=== PATIENT | female | born 1945 | race Caucasian/White ===

== ENCOUNTER → 2017-01-08 | Outpatient (CLI) | payer MEDICARE ==
[~2017-01-08] MED LIST: ELIQUIS5 MG PO; FLONASE 0.05% D16 GM NS; GLUCOPHAGE-DPS500 MG PO; PRAVACHOL40 MG PO; SYNTHROID75 MCG PO; TYLENOL DPS325 MG PO; ULTRAM DPS50 MG PO; VITAMIN D31000 UNIT PO; ZESTRIL DPS40 MG PO
== END | disposition home or self-care (01) ==
LOC: PTH.S 11:13
DX: R09.81 Nasal congestion (principal); R05 Cough

== ENCOUNTER → 2017-01-13 | Outpatient (CLI) | payer MEDICARE | END | disposition home or self-care (01) | LOC: RESC 01-05 16:10 | DX: R05 Cough (principal); R09.81 Nasal congestion; J32.4 Chronic pansinusitis ==

== ENCOUNTER 2017-02-27 10:51 | Emergency (ER) | payer MEDICARE ==
--- NOTE | 2017-03-05 21:34 | ER ---
ADMIT: 02/27/2017 RM/LOC: ER [facility] MR#: [id number] [address] [address] KARLIE VERDUGO [address] [place] [address] Emergency Room Report SEX: F AGE: 71 : 1945 DATE: 02/27/2017 CHIEF COMPLAINT: Left knee pain. HPI: The patient states 3-4 days ago she began having some anterior left knee pain. She denies any fall, twist, or direct blow or any other mechanism to explain her pain. States she has been using Tylenol and Biofreeze topically without much improvement. States she cannot use ibuprofen as it upsets her stomach. She describes the pain as an ache over the anterior knee with some extension into the medial side. Describes it 03/16. COURSE IN ER: The patient was seen and examined. She is in no acute distress. She is alert, afebrile, and nontoxic. Significant for tenderness over the anterior aspect of her knee. No obvious effusion or ecchymosis. She was able to bear weight prior to arrival today. Typically walks independently with front-wheeled walker. I did get x-ray studies of the left knee showing no acute fracture or dislocation. She does have some degenerative changes in the medial compartment, significant for early osteoarthritis. IMPRESSION: Left knee pain, concern for patellar bursitis vs osteoarthritis. DISPOSITION: Daughter at the bedside, requests something for pain as she has been unable to sleep secondary to the pain, Tylenol is not improving her pain. I will give her a script for [place] 5/325, #10 to follow up with Dr. Gastelum if she is not improving. I told her to use caution while using the pain medications as it can cause dizziness, increased risk for falls. She should not drive while using narcotics. Also cautioned not to use Tylenol while using the [place] as it does contain Tylenol. Certainly continue to apply ice or heat as needed for comfort, Biofreeze as needed, and activity as tolerated. Continue all her home medications. Follow up with Dr. Gastelum as needed. Questions were sought and answered to best of my ability and patient's satisfaction. Discharged in stable condition. ANYA Barraza / Thee Matthew MD / severol JOB #: [id number] CC: Thee Matthew MD, Attending Physician Jason Gastelum MD, Family Physician
[2017-04-02] MEDS ORDERED: ELIQUIS5 MG PO (10:35)
[2017-04-02] MEDS ORDERED: ZESTRIL DPS40 MG PO (10:36)
[2017-04-02] MEDS ORDERED: SYNTHROID75 MCG PO (10:36)
[2017-04-02] MEDS ORDERED: PRAVACHOL40 MG PO (10:36)
[2017-04-02] MEDS ORDERED: VITAMIN D31000 UNIT PO (10:36)
[2017-04-02] MEDS ORDERED: TYLENOL DPS325 MG PO (10:37)
[2017-04-02] MEDS ORDERED: FLONASE 0.05% D16 GM NS (10:37)
[2017-04-02] MEDS ORDERED: ULTRAM DPS50 MG PO (10:37)
[2017-04-02] MEDS ORDERED: GLUCOPHAGE-DPS500 MG PO (10:37)
== END 2017-02-27 12:30 | disposition home or self-care (01) ==
LOC: ER 10:51
DX: M25.562 Pain in left knee (principal); I10 Essential (primary) hypertension; E11.9 Type 2 diabetes mellitus without complications; Z87.891 Personal history of nicotine dependence; Z79.899 Other long term (current) drug therapy

== ENCOUNTER 2017-03-22 12:47 | Inpatient (IN) | payer MEDICARE ==
[~2017-03-22] VITALS: Ht 162.6 cm; Wt 99.8 kg
--- NOTE | ~2017-03-22 | ECH ---
Transthoracic Echocardiography Report (TTE) Demographics Patient Name KARLIE VERDUGO Date of Study 03/23/2017 Patient Number [id number] Visit Number [id number] Date of 1945 Room Number 424 Accession Number [id number] Gender Female Age 71 year(s) Referring Nirav Moreira MD Chief Data Officer Debi Denis Physician RDCS Physician Interpreting Robel DOWNS Industry Consultant Physician Rob Supervising Ordering Physician Nirav Moreira MD, MD/MLP Nurse Stress Paper Bag Press Operator Conclusions Contractility Score Summary Normal Left Ventricular contractility was noted. Summary Technically adequate exam. The estimated left ventricular ejection fraction is 60%. Diastolic assessment reveals Grade I diastolic dysfunction. Bubble study was done, there is no evidence for a PFO or ASD. No significant valvular abnormalities. Recommendation The patient will be given the results of this study by the physician who ordered the exam. Procedure Type of Study TTE procedure:Echo Complete SF. Procedure Date Date: 03/23/2017 Start: 11:01 Technical Quality: Adequate visualization Indications:CVA, Atrial fibrillation, Hypertension and Diabetes. Appropriate Use Criteria: 9 Height: 64 inches Weight: 222 pounds BSA: 2.04 m Rhythm: NSR HR: 76 bpm BP: 206/92 mmHg M-Mode/2D Measurements LV Diastolic Dimension: 4.97 cm LV Systolic Dimension: 3.07 cm LV Septum Diastolic: 0.81 cm LV PW Diastolic: 0.81 cm AO Root Dimension: 2.75 cm Cardiac Output: 4.73 l/min LA Dimension: 3.55 cm Cardiac Index: 2.32 l/min*m RV Diastolic Dimension: 3.4 cm LA volume index: 22 ml/m LVOT: 1.92 cm LVOT VTI: 21.52 cm RV Base: 2.8 cm LV Stroke volume: 62.28 ml RV Mid: 1.9 cm LV Stroke volume index: 30.53 ml/m TAPSE: 1.9 cm TDI-S': 16 cm/s Doppler Measurements AV Peak Velocity: 1.4 m/s MV Peak E-Wave: 0.81 m/s AV Peak Gradient: 7.84 mmHg MV Peak A-Wave: 1.04 m/s AV Mean Gradient: 4.12 mmHg MV E/A Ratio: 0.77 LVOT Peak Velocity: 0.99 m/s MV P1/2t: 60.1 msec AV Area (Continuity):2.12 cm MV Deceleration Time: 182.3 msec MV Area (PHT): 3.66 cm PV Peak Velocity: 0.81 m/s E' Septal Velocity: 0.08 m/s PV Peak Gradient: 2.6 mmHg E' Lateral Velocity: 0.05 m/s A' Septal Velocity: 0.1 m/s A' Lateral Velocity: 0.08 m/s RA Area: 14.51 cm Findings Left Ventricle Normal left ventricle size and function. Diastolic assessment reveals Grade I diastolic dysfunction. Right Ventricle Normal right ventricle structure and function. Left Atrium Normal left atrial size. Informed consent was obtained, bubble study was done, there is no evidence for a PFO or ASD. Right Atrium Normal right atrial size. Mitral Valve Normal mitral valve structure and function. Mild mitral regurgitation by color Doppler. Aortic Valve Normal aortic valve structure and function. Tricuspid Valve Normal tricuspid valve structure and function. Trivial tricuspid regurgitation by color Doppler. Insufficient jet to calculate pulmonary pressures. Pulmonic Valve Normal pulmonic valve structure and function. Pericardial Effusion No evidence of pericardial effusion. Miscellaneous Visualized portions of the aortic root and ascending aorta appear normal in size. Pleural Effusion No evidence of pleural effusion. Contractility Score LV regional wall motion:(0-Non visualized 1-Normal 2-Hypokinesis 3-Akinesis 4-Dyskinesis 5-Aneurysm) Signature
--- NOTE | 2017-03-22 22:09 | NUR ---
Called Dr Zendejas to inquire if MRI could be done first thing in AM or if it had to be done tonight. She stated that it could be done in AM. I called CT to pass on that message and they acknowledged the message.
--- NOTE | 2017-03-23 21:30 | NUR ---
Called Dr Gastelum with results from CTA. New orders received for morning lab draws.
--- NOTE | 2017-03-24 12:05 | HP ---
ADMIT: 03/22/2017 RM/LOC: 424 [facility] MR#: [id number] [facility] [address] [place] [phone] KARLIE VERDUGO [address] [place] [address] History and Physical SEX: F AGE: 71 : 1945 DATE OF SERVICE: CHIEF COMPLAINT: Confusion. HISTORY OF PRESENT ILLNESS: The patient is a 71-year-old female, known to me from clinic, who according to her daughter just kind of was not acting right this morning. Was not acting right on the phone, some confusion. This persisted. Went to the ER. The patient currently reports she has had a headache. Similar to when she had a stroke a few years ago. Otherwise, she overall just does not feel like herself, feels groggy. Reports she has not taken any pain medication today. Was planning on getting a knee scope tomorrow. Otherwise, had been in her usual state of health. Prior to this, struggling with some knee. Suspect a meniscal tear pain recently. She is off her Xarelto for the last 4 days under direction for her upcoming procedure she states. Otherwise, no recent palpitations, fevers, chills, nausea, vomiting, or shortness of breath. PAST MEDICAL HISTORY: 1. Depression. 2. GERD. 3. History of stroke. 4. Hypertension. 5. Hypothyroidism. 6. Obstructive sleep apnea. 7. Chronic atrial fibrillation, on chronic anticoagulation. 8. Type 2 diabetes. 9. Hypercholesterolemia. MEDICATIONS: She is on: 1. DuoNeb. 2. Eliquis 5 mg b.i.d. 3. Lasix 40 mg. 4. [place] p.r.n. 5. Synthroid. 6. Lisinopril. 7. Metformin. 8. Metoprolol. 9. Pravastatin. PAST SURGICAL HISTORY: Hysterectomy, appendectomy, and oophorectomy. FAMILY HISTORY: Mother had diabetes, heart disease, and uterine cancer. Father had depression. Sister with heart disease. SOCIAL HISTORY: Former history of smoking. Quit in 1989. REVIEW OF SYSTEMS: As per HPI. Otherwise, completely reviewed and negative. PHYSICAL EXAMINATION: VITAL SIGNS: Temperature 98.5, pulse 84, respiratory ADMIT: 03/22/2017 RM/LOC: 424 [facility] MR#: [id number] [address] [address] KARLIE VERDUGO [address] [place] [address] History and Physical SEX: F AGE: 71 : 1945 rate 16, blood pressure 187/85, and O2 saturation 93% on room air. GENERAL: She is alert and oriented x3, but very slow with her responses. Kind of wide-eyed. HEENT: Normocephalic and atraumatic. Pupils are equal bilaterally. No icterus. Dry mucous membranes. She has a left-sided facial droop. NECK: No lymphadenopathy. Trachea is midline. Soft and supple. LUNGS: Clear to auscultation bilaterally. No wheezes, rales, or rhonchi. HEART: Regular rate and rhythm. No murmurs, rubs, or gallops. ABDOMEN: Soft, nontender, nondistended. Bowel sounds present. EXTREMITIES: No cyanosis, clubbing, or edema. 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 She has had a left facial droop and some coordination issues in her left lower extremity as well as in her left upper extremity. Does not move it as well as her right side. SKIN: No rashes noted. NEUROLOGIC: Cranial nerves noted for facial droop. Otherwise intact. Left facial droop. LABORATORY AND X-RAY DATA: Chest x-ray looks okay. Head CT scan was negative for anything acute, stable. Creatinine 0.6. White count 12.6 and platelets 236. Potassium 4.1. UA is negative. Troponins negative. ASSESSMENT/PLAN: 1. Acute stroke. 2. Diabetes type 2. 3. Hypertension. 4. Hyperlipidemia. 5. Obstructive sleep apnea. PLAN: At this point in time, it seems like she has an acute stroke clearly on exam. We will get an MRI to further evaluate. Restart her Eliquis. Given her history of atrial fibrillation. We will consult therapy services. The patient is agreeable with plan. Jason Gastelum MD/ rosy JOB #: [id number] CC: Jason Gastelum, Attending Physician Jason Gastelum, Family Physician
--- NOTE | 2017-03-30 15:50 | DS ---
ADMIT: 03/22/2017 RM/LOC: 424 [facility] MR#: [id number] [address] [address] KARLIE VERDUGO [address] [place] [address] Discharge Summary SEX: F AGE: 71 : 1945 ADMISSION DATE: 03/22/2017 DISCHARGE DATE: 03/25/2017 ATTENDING AT TIME OF DISCHARGE: Jason Gastelum MD CONSULTATIONS: None. PROCEDURES: None. FINAL DIAGNOSES: 1. Acute stroke. 2. Diabetes, type 2. 3. Hypertension. 4. Obstructive sleep apnea. 5. Knee pain. 6. A fib (atrial fibrillation). REASON FOR ADMISSION: The patient is a 71-year-old female, not acting like herself. Had a left facial droop and some left weakness. Presented to the emergency room. Admitted for further stabilization with concern for acute stroke. HOSPITAL COURSE: The patient had been off her anticoagulation due to planned knee scoping. She was restarted on her anticoagulation. Imaging was performed. Initially was not overall diagnostic. Had repeat MRI after she had persistence and actually re-worsening of symptoms. Ultimately consistent with acute stroke. Given her symptoms, she did have some improvement while here. Plan is to go up to the IRU with continued therapy services. Plan anticoagulation to be continued indefinitely. DISCHARGE INSTRUCTIONS: She will go to IRU with therapy. For discharge medications, please see discharge MAR, which I reviewed. She will see me back in clinic in followup to be arranged upon discharge from IRU. Jason Gastelum MD/ obdulio JOB #: [id number] CC: Jason Gastelum MD, Attending Physician Jason Gastelum MD, Family Physician
[2017-04-02] MEDS ORDERED: ELIQUIS5 MG PO (10:35)
[2017-04-02] MEDS ORDERED: SYNTHROID75 MCG PO (10:36)
[2017-04-02] MEDS ORDERED: PRAVACHOL40 MG PO (10:36)
[2017-04-02] MEDS ORDERED: VITAMIN D31000 UNIT PO (10:36)
[2017-04-02] MEDS ORDERED: ZESTRIL DPS40 MG PO (10:36)
[2017-04-02] MEDS ORDERED: FLONASE 0.05% D16 GM NS (10:37)
[2017-04-02] MEDS ORDERED: TYLENOL DPS325 MG PO (10:37)
[2017-04-02] MEDS ORDERED: ULTRAM DPS50 MG PO (10:37)
[2017-04-02] MEDS ORDERED: GLUCOPHAGE-DPS500 MG PO (10:37)
--- NOTE | 2017-04-21 18:45 | ER ---
ADMIT: 03/22/2017 RM/LOC: 424 [facility] MR#: [id number] [address] [address] KARLIE VERDUGO [address] [place] [address] Emergency Room Report SEX: F AGE: 71 : 1945 DATE: 03/22/2017 ADDENDUM: The patient comes to the ER for weakness and also a headache that started at 4:00 a.m. She has had an inability to talk and seems confused. She has fallen several times. She does use a cane. On physical exam, she is alert and oriented, but she is very slow to answer all my questions. Nurse did a stroke scale on her which was negative. According to the family, some of her symptoms seemed to have resolved since she has arrived to the ER. DIAGNOSES: 1. Transient ischemic attack. 2. Weakness. DISCUSSION: I did consult with Dr. Gastelum concerning treatment of this patient. CT scan of her head was negative. IV of normal saline was started. She was given morphine for her headache which did help with her symptoms. The patient will be admitted by Dr. Gastelum. Please refer to his dictation for further treatment. ANYA Dallas / Reza Hoang MD / modl JOB #: [id number] CC: Jason Gastelum MD, Attending Physician Jason Gastelum MD, Family Physician
== END 2017-03-25 10:05 | disposition short-term general hospital (02) | DRG 65 ==
LOC: ER 12:47 → 4PCU 16:35
PROVIDERS: ADMIT Internal Medicine
DX: I63.9 Cerebral infarction, unspecified (principal); G81.94 Hemiplegia, unspecified affecting left nondominant side; I48.2 Chronic atrial fibrillation; E11.9 Type 2 diabetes mellitus without complications; R29.810 Facial weakness; S83.209A Unspecified tear of unspecified meniscus, current injury, unspecified knee, initial encounter; X58.XXXA Exposure to other specified factors, initial encounter; F32.9 Major depressive disorder, single episode, unspecified; K21.9 Gastro-esophageal reflux disease without esophagitis; E78.00 Pure hypercholesterolemia, unspecified; I10 Essential (primary) hypertension; E03.9 Hypothyroidism, unspecified; G47.33 Obstructive sleep apnea (adult) (pediatric); Z86.73 Personal history of transient ischemic attack (TIA), and cerebral infarction without residual deficits; Z79.01 Long term (current) use of anticoagulants; Z79.84 Long term (current) use of oral hypoglycemic drugs; Z87.891 Personal history of nicotine dependence

== ENCOUNTER 2017-03-25 08:57 | Inpatient (IN) | payer MEDICARE ==
[~2017-03-25] VITALS: Ht 162.6 cm; Wt 100.5 kg
--- NOTE | 2017-03-27 18:51 | NUR ---
DAY SHIFT SUMMARY: REGULAR DIET, BUT IS NOT TO USE STRAWS; GROOMING IS SUPERVISED AND ITEMS SETUP FOR PT; MIN ASSIST OF 1 FOR DRESSING, TOILETING AND AMBULATION W/ GAIT BELT, WALKER AND 1 ASSIST; BOWEL MED HELD TODAY STOOLS WERE LOOSE 5/20; TRANSFERS BED TO CHAIR AND ON/OFF TOILET SUPERVISED W/ SBA OF 1.
[2017-04-02] MEDS ORDERED: ELIQUIS5 MG PO (10:35)
[2017-04-02] MEDS ORDERED: SYNTHROID75 MCG PO (10:36)
[2017-04-02] MEDS ORDERED: VITAMIN D31000 UNIT PO (10:36)
[2017-04-02] MEDS ORDERED: PRAVACHOL40 MG PO (10:36)
[2017-04-02] MEDS ORDERED: ZESTRIL DPS40 MG PO (10:36)
[2017-04-02] MEDS ORDERED: ULTRAM DPS50 MG PO (10:37)
[2017-04-02] MEDS ORDERED: TYLENOL DPS325 MG PO (10:37)
[2017-04-02] MEDS ORDERED: GLUCOPHAGE-DPS500 MG PO (10:37)
[2017-04-02] MEDS ORDERED: FLONASE 0.05% D16 GM NS (10:37)
--- NOTE | 2017-04-29 08:52 | DS ---
ADMIT: 03/25/2017 RM/LOC: 611 [facility] MR#: [id number] [facility] [address] [place], [place] [address] KARLIE VERDUGO [address] [place] [address] General Discharge Summary SEX: F AGE: 71 : 1945 ADMISSION DATE: 03/25/2017 DISCHARGE DATE: 04/01/2017 DISCHARGE DIAGNOSIS: Stroke 01.1, left body involvement, right brain, I63.9, cerebral infarction, unspecified, onset 03/22/2017, comorbid conditions per initial H and P. Other diagnoses per hospital course below. HOSPITAL COURSE: Please see my initial H and P for details prior to transfer to the IRU. Eliquis was continued for prophylaxis. Pain and bowel regimen was adjusted. Dietitian followed to optimize nutrition. Pharmacy followed to optimize medication management. Pravachol for hyperlipidemia adjusted. Senokot-S for constipation. Lab was monitored regularly. Postvoid residuals were normal. Hypothyroidism labs were checked. Accu-Chek q.a.c. and very low- dose sliding scale insulin for diabetes. Hypokalemia replaced with KCl. Blood pressure and heart rate rechecked due to nonspecific low blood pressure readings. Vitamin D deficiency replaced with vitamin D3. Accu-Cheks sliding scale insulin no longer necessary. The patient was medically stable at the time of discharge. Please see IRU interdisciplinary discharge summary for details regarding progress in therapy. DISCHARGE DISPOSITION: Home with family. Assist as needed. DISCHARGE MEDICATIONS: Please see discharge med rec. She was given #60 of Ultram. FOLLOWUP: Dr. Gastelum on April 19, Dr. Salas at mutually agreeable time. Nathan Manriquez MD/ rosy JOB #: [id number] CC:
== END 2017-04-01 12:05 | disposition home or self-care (01) | DRG 57 ==
LOC: 6IRU 10:03
PROVIDERS: ADMIT Physical Medicine & Rehabilitation
DX: I69.320 Aphasia following cerebral infarction (principal); I48.91 Unspecified atrial fibrillation; E11.9 Type 2 diabetes mellitus without complications; I69.319 Unspecified symptoms and signs involving cognitive functions following cerebral infarction; I10 Essential (primary) hypertension; E03.9 Hypothyroidism, unspecified; K21.9 Gastro-esophageal reflux disease without esophagitis; F32.9 Major depressive disorder, single episode, unspecified; E55.9 Vitamin D deficiency, unspecified; M25.562 Pain in left knee; G47.33 Obstructive sleep apnea (adult) (pediatric); R27.8 Other lack of coordination; E87.6 Hypokalemia; K59.00 Constipation, unspecified; E78.5 Hyperlipidemia, unspecified; J45.909 Unspecified asthma, uncomplicated; R03.1 Nonspecific low blood-pressure reading; Z79.01 Long term (current) use of anticoagulants; Z87.891 Personal history of nicotine dependence